=== PATIENT | male | born 1990 | race Caucasian/White ===

== ENCOUNTER 2023-04-27 17:21 | Emergency (ER) | payer OTHER, SELFPAY ==
--- NOTE | ~2023-04-27 | XR_ITS ---
EXAMINATION: XR foot LT min 3V DATE: 04/27/2023 18:17 INDICATION: Left foot pain. Fall. TECHNIQUE: 4 views of left foot were obtained. COMPARISON: None. FINDINGS: Bone alignment is normal. No fracture. There is mild osteoarthritis of first metatarsophala ngeal joint and talonavicular joint. There are enthesophytes at the posterior and plantar aspects of calcaneal tuberosity. IMPRESSION: 1. Mild polyarticular osteoarthritis. Reviewed, dictated and finalized at location E.
--- NOTE | ~2023-04-27 | XR_ITS ---
EXAMINATION: XR ankle LT min 3V DATE: 04/27/2023 18:17 INDICATION: Left ankle pain. Fall. TECHNIQUE: 4 views of left ankle were obtained. COMPARISON: None. FINDINGS: Bone alignment is normal. There are fragments of heterotopic ossification distal to medial and lateral malleoli. Joint spaces are normal. There are enthesophytes at the posterior and plantar a spects of calcaneal tuberosity. There is ankle soft tissue swelling. IMPRESSION: 1. 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 Reviewed, dictated and finalized at location E. IMPRESSION: 1. 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
[2023-04-27 17:45] VITALS: BP 156/100; PULSE 74; RESP 16; TEMP 36.5; O2SAT 98
--- NOTE | 2023-04-27 18:00 | ED.GENADULT ---
HPI - General Adult General Chief complaint: Extremity Injury, Lower <Chanel Carr November, - Last Filed: 04/27/23 18:10> Stated complaint: L ankle injury <Chanel Carr November, - Last Filed: 04/27/23 18:10> Time Seen by Provider: 04/27/23 18:35 <Chanel Carr November,N - Last Filed: 04/27/23 18:10> History of Present Illness HPI narrative: Casper Rebollar is a 33 y/o male who presents with reports of rolling his ankle tripping on a rock 2 days ago, he went to an OSH and was diagnosed with a non displaced lateral malleus fracture to the left ankle. They placed him in a boot/ with follow up with ortho. Patient tried to follow up with the ortho they referred him to but he can't get in. He presents here concerned because over the past two days he has had more swelling and bruising to his ankle and foot/ he denies numbness- reports his pain is manageable and has not really taken anything for pain He also would like to get follow up with ortho here. <Chanel Carr November, - Last Filed: 04/27/23 18:10> Related Data Allergies/adverse reactions: Allergies Allergy/AdvReac Type Severity Reaction Status Date / Time No Known Allergies Allergy Verified 04/27/23 17:49 <Chanel Carr November, - Last Filed: 04/27/23 18:10> Review of Systems Review of Systems: All systems as dictated in HPI <Lambert Dueñas PA-C - Last Filed: 04/28/23 01:33> Exam Narrative: GENERAL: Well-appearing, well-nourished, and in no acute distress. HEAD: Normocephalic, atraumatic. EYES: PERRLA and EOMI. ENT: Nares clear, no rhinorrhea or epistaxis. Mucous membranes moist. Oropharynx without tonsillar hypertrophy exudate or other lesions. NECK: Supple. No adenopathy or masses. CHEST: No respiratory distress. Clear to auscultation. No wheezes rales or rhonchi HEART: Regular rate and rhythm. No murmur heard. Normal peripheral pulses. ABDOMEN: Soft, nontender, nondistended, normal active bowel sounds. MSK: Musculoskeletal exam otherwise intact. Normal range of motion. No edema. SKIN: Warm, dry, no rash. NEURO: Alert and oriented x3. No focal deficits. PSYCH: Normal mood and affect. <Lambert Dueñas PA-C - Last Filed: 04/28/23 01:33> Course Vital Signs Vital signs: Vital Signs Temperature 97.7 F 04/27/23 17:45 Pulse Rate 74 04/27/23 17:45 Respiratory Rate 16 04/27/23 17:45 Blood Pressure 156/100 H 04/27/23 17:45 Pulse Oximetry 98 04/27/23 17:45 Oxygen Delivery Room Air 04/27/23 17:45 Temperature 97.7 F 04/27/23 17:45 Pulse Rate 74 04/27/23 17:45 Respiratory Rate 16 04/27/23 17:45 Blood Pressure 156/100 H 04/27/23 17:45 Pulse Oximetry 98 04/27/23 17:45 Oxygen Delivery Room Air 04/27/23 17:45 <Chanel Vincent, [employer] - Last Filed: 04/27/23 18:10> Vital Signs Temperature 97.7 F 04/27/23 17:45 Pulse Rate 74 04/27/23 17:45 Respiratory Rate 16 04/27/23 17:45 Blood Pressure 156/100 H 04/27/23 17:45 Pulse Oximetry 98 04/27/23 17:45 Oxygen Delivery Room Air 04/27/23 17:45 Temperature 97.7 F 04/27/23 17:45 Pulse Rate 74 04/27/23 17:45 Respiratory Rate 16 04/27/23 17:45 Blood Pressure 156/100 H 04/27/23 17:45 Pulse Oximetry 98 04/27/23 17:45 Oxygen Delivery Room Air 04/27/23 17:45 <Lambert Dueñas PA-C - Last Filed: 04/28/23 01:33> Medical Decision Making MDM Narrative Medical decision making narrative: This is a 33-year-old male who presents to the ED with chief complaint of left ankle injury that occurred several days ago. Vitals are normal. Exam shows bruising and swelling throughout the left ankle. Mild tenderness. Soft compartments. X-ray left ankle: 1. 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 . He was already given a walking boot by the previous facility and was told he had fracture in the ankle but presents today be
[2023-04-27] MEDS: NAPROXEN 500 MG TABLET PO (18:25)
[2023-04-27] MEDS: KETOROLAC 30 MG/ML VIAL (*BKC) IM (19:19)
== END 2023-04-27 19:32 | disposition home or self-care (01) ==
LOC: ANHED 19:15
PROVIDERS: Emergency Provider Physician Assistant
DX: S93.402A Sprain of unspecified ligament of left ankle, initial encounter (principal); S96.912A Strain of unspecified muscle and tendon at ankle and foot level, left foot, initial encounter; M19.072 Primary osteoarthritis, left ankle and foot; W22.8XXA Striking against or struck by other objects, initial encounter; X50.9XXA Other and unspecified overexertion or strenuous movements or postures, initial encounter
CPT/HCPCS: 73610; 73630; 96372; 99283; A9270; J1885